=== PATIENT | female | born 1965 | race Caucasian/White ===

== ENCOUNTER → 2025-03-17 12:52 | Outpatient (REF) | payer OTHER, SELFPAY | LOC: HWWDC 12:52 | PROVIDERS: ATTENDING PHYSICIAN Nurse Practitioner | DX: Z12.31 Encounter for screening mammogram for malignant neoplasm of breast (principal); Z76.89 Persons encountering health services in other specified circumstances | CPT/HCPCS: 77063; 77067 ==